=== PATIENT | female | born 1930 | race Caucasian/White ===

== ENCOUNTER 2021-04-04 11:55 | Emergency (ER) | payer OTHER ==
[~2021-04-04] VITALS: Ht 165.1 cm; Wt 58.1 kg
[2021-04-04] MEDS ORDERED: TENORMIN25 MG PO (12:15)
[2021-04-04] MEDS ORDERED: ANTIVERT (12:16)
[2021-04-04] MEDS ORDERED: CALCIUM500 M1 PO (12:17)
== END 2021-04-04 13:53 | disposition home or self-care (01) ==
LOC: ER 11:55
DX: S81.811A Laceration without foreign body, right lower leg, initial encounter (principal); W55.01XA Bitten by cat, initial encounter; Y93.9 Activity, unspecified; Y92.9 Unspecified place or not applicable; Y99.9 Unspecified external cause status; I10 Essential (primary) hypertension

== ENCOUNTER 2021-05-11 09:12 | Outpatient (CLI) | payer OTHER ==
[~2021-05-11 09:12] MED LIST: ANTIVERT; CALCIUM500 M1 PO; TENORMIN25 MG PO
== END 2021-05-11 09:14 | disposition home or self-care (01) ==
LOC: RAD 09:12
PROVIDERS: ATTEND Orthopaedic Surgery
DX: M17.11 Unilateral primary osteoarthritis, right knee (principal)

== ENCOUNTER 2021-05-11 10:31 | Outpatient (CLI) | payer OTHER | END 2021-05-11 10:32 | disposition home or self-care (01) | LOC: LAB 10:31 | PROVIDERS: ATTEND Orthopaedic Surgery | DX: E55.9 Vitamin D deficiency, unspecified (principal); M85.9 Disorder of bone density and structure, unspecified; E56.1 Deficiency of vitamin K; E21.3 Hyperparathyroidism, unspecified; E88.9 Metabolic disorder, unspecified; M81.8 Other osteoporosis without current pathological fracture; E83.42 Hypomagnesemia ==

== ENCOUNTER 2021-08-29 10:24 | Outpatient (CLI) | payer OTHER | END 2021-08-29 10:31 | disposition home or self-care (01) | LOC: RAD 10:24 | PROVIDERS: ATTEND Specialist | DX: S79.912A Unspecified injury of left hip, initial encounter (principal) ==